=== PATIENT | female | born 1940 | race Caucasian/White ===

== ENCOUNTER 2018-03-05 18:57 | Emergency (ER) | payer MEDICARE ==
[~2018-03-05] VITALS: Ht 157.5 cm; Wt 85.0 kg
[2018-03-05] MEDS ORDERED: QUIN40TA14 PO (19:20)
[2018-03-05] MEDS ORDERED: AMLO5TAB88 PO (19:20)
[2018-03-05] MEDS ORDERED: ATOR20TA65 PO (19:20)
[2018-03-05] MEDS ORDERED: HYDR-2510 PO (19:20)
[2018-03-05] MEDS ORDERED: LEVO25TA7 PO (19:20)
[2018-03-05] MEDS ORDERED: METF-816 PO (19:20)
[2018-03-05] MEDS ORDERED: INSNPH SUBCUT (19:21)
[2018-03-05] MEDS ORDERED: ACETAMINOPHEN WITH CODEINE 300/30MG TABLET PO STA (23:41)
[2018-03-05 23:53] VITALS: BP 160/81
== END 2018-03-06 02:29 | disposition home or self-care (01) ==
LOC: ER 18:57
DX: S52.501A Unspecified fracture of the lower end of right radius, initial encounter for closed fracture (principal); M25.511 Pain in right shoulder; E11.9 Type 2 diabetes mellitus without complications; I10 Essential (primary) hypertension; E78.00 Pure hypercholesterolemia, unspecified; W01.0XXA Fall on same level from slipping, tripping and stumbling without subsequent striking against object, initial encounter; Y93.89 Activity, other specified; Y92.89 Other specified places as the place of occurrence of the external cause; Z88.0 Allergy status to penicillin
CPT/HCPCS: 73030; 73060; 73090; 73110; 99283; A4565